=== PATIENT | male | born 1945 | race Caucasian/White ===

== ENCOUNTER 2023-08-29 12:58 | Outpatient (CLI) | payer MEDICARE, BC | END 2023-08-29 12:59 | disposition home or self-care (01) | LOC: CT 12:58 | PROVIDERS: ATTEND Internal Medicine | DX: J43.9 Emphysema, unspecified (principal); D17.9 Benign lipomatous neoplasm, unspecified; R91.1 Solitary pulmonary nodule | CPT/HCPCS: 71250 ==

== ENCOUNTER 2024-06-17 14:07 | Outpatient (CLI) | payer MEDICARE, BC | END 2024-06-17 14:08 | disposition home or self-care (01) | LOC: SCSRAD 14:07 | PROVIDERS: ATTEND Family Medicine | DX: R60.0 Localized edema (principal) | CPT/HCPCS: 71046 ==

== ENCOUNTER 2025-07-13 12:22 | Outpatient (CLI) | payer MEDICARE, BC | END 2025-07-13 12:23 | disposition home or self-care (01) | LOC: RAD 12:22 | PROVIDERS: ATTEND Internal Medicine | DX: R06.00 Dyspnea, unspecified (principal) | CPT/HCPCS: 71046 ==